=== PATIENT | male | born 1995 | race African-American/Black ===

== ENCOUNTER 2017-12-27 15:47 | Emergency (ER) | payer OTHER ==
[~2017-12-27] VITALS: Ht 170.2 cm; Wt 73.5 kg
[2017-12-27] MEDS ORDERED: BACTRIM DS TAB1 EACH PO (16:32)
[2017-12-27 17:11] VITALS: BP 112/58
== END 2017-12-27 17:12 | disposition home or self-care (01) ==
LOC: ER 15:47
DX: L03.011 Cellulitis of right finger (principal)